=== PATIENT | male | born 1980 | race African-American/Black ===

== ENCOUNTER 2016-12-21 21:39 | Emergency (ER) | payer OTHER ==
[~2016-12-21 21:39] MED LIST: MORGIDOX100 MG PO; MOTRIN600 M1 PO; NO MEDICATIONS; VOLTAREN75 MG PO
== END 2016-12-21 22:05 | disposition home or self-care (01) ==
LOC: SED 21:39
DX: S29.012A Strain of muscle and tendon of back wall of thorax, initial encounter (principal); F17.210 Nicotine dependence, cigarettes, uncomplicated; V49.40XA Driver injured in collision with unspecified motor vehicles in traffic accident, initial encounter; Y92.410 Unspecified street and highway as the place of occurrence of the external cause
CPT/HCPCS: 99283